=== PATIENT | female | born 1975 | race Caucasian/White ===

== ENCOUNTER 2021-01-03 16:04 | Emergency (ER) | payer OTHER ==
[~2021-01-03] VITALS: Ht 170.2 cm; Wt 97.7 kg
[2021-01-03 16:40] VITALS: TEMP 98.3
[2021-01-03] MEDS ORDERED: NORCO 325 MG-51 TAB PO (17:57)
[2021-01-03] MEDS ORDERED: FLEXERIL 1010 MG/TAB PO (17:57)
[2021-01-03 18:32] VITALS: BP 121/70; PULSE 76
== END 2021-01-03 18:32 | disposition home or self-care (01) ==
LOC: COL.ER 16:04
DX: M54.5 Low back pain (principal); G35 Multiple sclerosis; Z87.820 Personal history of traumatic brain injury